=== PATIENT | male | born 1985 | race Caucasian/White ===

== ENCOUNTER 2017-07-13 00:20 | Emergency (ER) | payer OTHER ==
[~2017-07-13] VITALS: Ht 172.7 cm; Wt 78.0 kg
[2017-07-13 00:25] VITALS: BP 120/83; Ht 172.7 cm; Wt 78.0 kg
== END 2017-07-13 04:35 | disposition left against medical advice (07) ==
LOC: ED 00:20
DX: Z53.21 Procedure and treatment not carried out due to patient leaving prior to being seen by health care provider (principal)